=== PATIENT | female | born 1980 | race Caucasian/White ===

== ENCOUNTER 2017-06-20 06:56 | Emergency (ER) | payer OTHER ==
[2017-06-20 07:39] LABS: #Basophils 0.1 thou/uL (0.0-0.2); #Eosinphils 0.2 thou/uL (0.0-0.7); #Lymphocytes 2.1 thou/uL (1.20-3.40); #Monocytes 0.7 thou/uL (0.11-0.59); #Neutrophils 6.3 thou/uL (1.40-6.50); %Basophils 0.6 % (0.0-1.0); %Eosinophils 2.3 % (0.0-10.0); %Lymphocytes 22.4 % (21.0-51.0); %Monocytes 7.1 % (0.0-10.0); %Neutrophils 67.6 % (42.0-75.0); Hemoglobin 12.9 g/dL (12.0-16.0); Mean Corpuscular HGB CONC 34.7 g/dL (32.0-36.0); Mean Corpuscular Hemoglobin 31.2 pg (27.0-31.0); Mean Platelet Volume 7.8 fL (7.4-10.4); Platelet Count 253 thou/uL (130-400); RBC Distribution Width 12.3 % (11.5-14.5); Red Blood Cell (RBC) Count 4.15 mill/uL (4.20-5.40); White Blood Cell (WBC) Count 9.4 thou/uL (4.8-10.8)
--- NOTE | 2017-06-20 08:36 | ULT ---
PELVIC ULTRASOUND: HISTORY: Vaginal bleeding off and on for months. TECHNIQUE: Multiplanar, wright scale, and color Doppler images were obtained in a transvaginal pelvic ultrasound. Spectral analysis throughout the waveforms of ovaries were performed. FINDINGS: There is a hypoechoic region within the uterus which likely represents a gestational sac. A yolk sac is seen within the gestational sac, but no pole is seen at this time. Mean sac diameter is 1. 36 cm which estimates gestational age at 6 weeks 2 days. No free fluid is seen in the pelvis. Both ovaries are normal in size and appearance and demonstrate normal internal flow. IMPRESSION: Likely early intrauterine with estimated age of 6 weeks 2 days. POS: DENISSE
== END 2017-06-20 08:33 | disposition home or self-care (01) ==
LOC: ERS 06:56
DX: O20.0 Threatened abortion (principal); O99.511 Diseases of the respiratory system complicating pregnancy, first trimester; J45.909 Unspecified asthma, uncomplicated; O99.281 Endocrine, nutritional and metabolic diseases complicating pregnancy, first trimester; E03.9 Hypothyroidism, unspecified; O99.351 Diseases of the nervous system complicating pregnancy, first trimester; G43.909 Migraine, unspecified, not intractable, without status migrainosus; O99.341 Other mental disorders complicating pregnancy, first trimester; F32.9 Major depressive disorder, single episode, unspecified; Z3A.01 Less than 8 weeks gestation of pregnancy; Z79.899 Other long term (current) drug therapy
CPT/HCPCS: 36415; 76856; 84702; 85025; 86900; 86901

== ENCOUNTER 2017-06-26 08:11 | Outpatient (CLI) | payer OTHER | END 2017-06-26 08:12 | disposition home or self-care (01) | LOC: BICULT 08:11 | PROVIDERS: ATTEND Internal Medicine | DX: N63.0 Unspecified lump in unspecified breast (principal); N64.89 Other specified disorders of breast ==

== ENCOUNTER 2018-02-11 20:43 | Inpatient (IN) | payer OTHER ==
[~2018-02-11 20:43] MED LIST: Bupivacaine 0.25% HCL 30 ML VIAL ONE; Bupivacaine/Epinephrine 0.25% 30 ML VIAL ONE
[2018-02-11] MEDS ORDERED: Butorphanol Tartrate 1 MG/ML VIAL SLOW IVP PRN (20:55)
[2018-02-11] MEDS ORDERED: Lidocaine 1% (PF) 30 ML VIAL SC PRN (20:55)
[2018-02-11] MEDS ORDERED: NS w/ Oxytocin 10 units 500 ML IV SCH (20:55)
[2018-02-11] MEDS ORDERED: Zolpidem Tartrate 5 MG TAB PO PRN (20:55)
[2018-02-11] MEDS ORDERED: HYDROcodone/Acetaminophen 5/325 mg Tablet PO PRN (20:55)
[2018-02-11] MEDS ORDERED: NS / Oxytocin 40 units/1000ml 1,000 ML IV PRN (20:55)
[2018-02-11] MEDS ORDERED: Diphenoxylate HCl/Atropine Tablet PO PRN (20:55)
[2018-02-11] MEDS ORDERED: Carboprost 250 MCG/ML AMP IM PRN (20:55)
[2018-02-11] MEDS ORDERED: Ondansetron HCl/PF 4 MG/2 ML Vial IVP PRN (20:55)
[2018-02-11] MEDS ORDERED: Methylergonovine 0.2 MG/ML VIAL IM PRN (20:55)
[2018-02-11] MEDS ORDERED: Ibuprofen 800 MG TAB PO PRN (20:55)
[2018-02-11] MEDS ORDERED: Misoprostol 200 MCG TAB PR PRN (20:55)
[2018-02-11] MEDS ORDERED: Promethazine HCl 25 MG/ML VIAL IM PRN (20:55)
[2018-02-11] MEDS ORDERED: Acetaminophen 500 MG TAB PO PRN (20:55)
[2018-02-11 21:03] VITALS: BMI 46.0
[2018-02-11] MEDS: Lactated Ringer's 1,000 ML IV SCH (21:35)
[2018-02-11] MEDS: Misoprostol 100 MCG TAB VAG SCH (22:05)
[2018-02-11 22:22] LABS: Hemoglobin 10.8 g/dL (12.0-16.0); Mean Corpuscular HGB CONC 34.2 g/dL (32.0-36.0); Mean Corpuscular Hemoglobin 30.2 pg (27.0-31.0); Mean Corpuscular Volume 88.1 fL (78.0-98.0); Mean Platelet Volume 8.8 fL (7.4-10.4); Platelet Count 244 thou/uL (130-400); RBC Distribution Width 12.9 % (11.5-14.5); Red Blood Cell (RBC) Count 3.58 mill/uL (4.20-5.40); White Blood Cell (WBC) Count 9.1 thou/uL (4.8-10.8)
[2018-02-11 22:46] LABS: Syphilis Antibody Nonreactive (Nonreactive); Syphilis Antibody Index 0.05 S/CO (<1.00 Non-Reactive)
[2018-02-11 23:28] LABS: HBSAg Index 0.21 S/CO (0-0.99); Hep B Surf Ag Non-Reactive S/CO (NonReactive)
[2018-02-12] MEDS: Misoprostol 100 MCG TAB VAG SCH ×7 (01:51→19:34)
[2018-02-12] MEDS: Lactated Ringer's 1,000 ML IV SCH ×4 (03:36→20:27)
--- NOTE | 2018-02-12 08:04 | PDOC.LDHP ---
Labor and Delivery H&P Chief complaint: scheduled induction HPI: 37yo at 39w4d by LMP for elective IOL. s/p cytotec x 3 over night, ctx pain 4/10 and some back pain. Current gestational age (weeks): 39 Due date: 02/15/18 Dating criteria: last menstrual period Grav: 1 Para: 0 Current complications: none Abnormal US findings: No Past Medical History: hypothyroid, obesity, anxiety Current medications: pre- vitamins, other (zoloft, levothyroxine) Previous surgical history: other (egd for stomach polyps) Allergies/Adverse Reactions: Allergies Allergy/AdvReac Type Severity Reaction Status Date / Time aspirin Allergy Verified 12/30/13 02:03 strawberry [[place]] Allergy Verified 12/30/13 02:03 Social history: none - Physical Exam Vital signs reviewed and normal: yes General: NAD Heart: RRR Lungs: CTAB Abdomen: gravid Extremeties: no edema FHT: category 1 [place] contractions every: 3min - Vaginal Exam cm dilated: 2 Effacement: 50% Station: -2 - OB Labs Blood type: A RH: positive Antibody Screen: negative HIV: negative RPR: negative HEPSAg: negative 1 hour GCT: negative GBS: negative Urine drug screen: negative Rubella: immune - Assessment L&D Assessment: elective induction at term - Plan Plan: admit to L&D, cervical ripening, labor augmentation if indicated, informed consent obtained, anesthesia consult for pain management -: 1 more dose of cytotec then pitocin with arom
[2018-02-12] MEDS ORDERED: NS w/ Oxytocin 10 units 500 ML ONE (13:06)
[2018-02-12] MEDS ORDERED: DISCONTINUE ALL PREVIOUS NARCOTICS FS SCH (13:30)
[2018-02-12] MEDS: Bupivacaine 0.5% 20 ML, fentaNYL Citrate/PF 400 MCG in Sodium Chloride 0.9% 72 ML EPIDURAL SCH ×2 (14:30→20:54)
[2018-02-12] MEDS ORDERED: diphenhydrAMINE 50 MG/ML VIAL IM PRN (14:45)
[2018-02-12] MEDS ORDERED: Bupivacaine 0.25% 10 ML VIAL EPIDURAL PRN (14:45)
[2018-02-12] MEDS ORDERED: fentaNYL Citrate/PF 1,250 MCG, Bupivacaine 25 ML in Sodium Chloride 0.9% 250 ML 200 ML EPIDURAL SCH (14:45)
[2018-02-12] MEDS ORDERED: diphenhydrAMINE 25 MG CAP PO PRN (14:45)
[2018-02-12] MEDS ORDERED: Ondansetron HCl/PF 4 MG/2 ML Vial IVP PRN (14:45)
[2018-02-12] MEDS ORDERED: Eucerin (Mineral Oil/Petrolatum,White) 30 gm Jar TOP PRN (14:45)
[2018-02-12] MEDS ORDERED: Promethazine HCl 25 MG SUPP PR PRN (14:45)
[2018-02-12] MEDS ORDERED: diphenhydrAMINE 50 MG/ML VIAL IVP PRN (14:45)
[2018-02-12] MEDS ORDERED: Communication Order-Pharmacy FS SCH ×2 (14:45)
[2018-02-12] MEDS ORDERED: Promethazine HCl 25 MG/ML VIAL IM PRN (14:45)
[2018-02-12] MEDS ORDERED: Zolpidem Tartrate 5 MG TAB PO PRN (14:45)
[2018-02-12] MEDS ORDERED: Naloxone HCl 0.4 mg/ml Vial IVP PRN ×2 (14:45)
--- NOTE | 2018-02-12 17:09 | PDOC.LDPN ---
Labor & Delivery Progress Note - Subjective Subjective: painful contractions - Objective Vital signs reviewed and normal: yes General: NAD Uterine fundus: non tender Dilation: 3 Effacement: 50% Station: -2 (arom clear) FHT: category 1 [place] contractions every: 3-4min AROM: clear fluid IUPC placed: yes FSE placed: yes Plan: labor augmentation
[2018-02-13] MEDS: Misoprostol 100 MCG TAB VAG SCH ×3 (00:17→09:10)
[2018-02-13] MEDS: Bupivacaine 0.5% 20 ML, fentaNYL Citrate/PF 400 MCG in Sodium Chloride 0.9% 72 ML EPIDURAL SCH (02:24)
[2018-02-13 07:49] LABS: Actual Bicarbonate (HCO3a) 27.6 mEq/L (22-28); Analyzer IN Cardio OR; Base Excess (BEa) -3.7 mEq/L (-2.0 to +3.0)
--- NOTE | 2018-02-13 07:50 | PDOC.OPDEL ---
OB Operative/Delivery Note Delivery Dr/Surgeon: Deangelo Assist: n/a Pre-Delivery Diagnosis: elective induction Procedure/Post Delivery Dx: spontaneous vaginal delivery Weeks gestation: 39 Anesthesia: epidural - Findings A Sex: male - Additional Findings/Plan Placenta delivered: spontaneous Repaired Obstetrical Laceration: episiotomy (midline, 2nd degree due to terminal bradycardia, repaired with 2-0 vicryl in usual fashion, excellent hemostasis) Estimated blood loss: 200 Compilations/Other Findings: baby pale and no effort immediately following , josé antonio called immediately and resuscitation began, cord gas and placenta sent to pathology. Post delivery plan: routine recovery
[2018-02-13 07:54] LABS: Actual Bicarbonate (HCO3v) 22 mEq/L (22-28); Analyzer IN Cardio OR; Base Excess -3.9 mEq/L (-2.0 to +3.0); pH (Cord, venous) 7.34 (7.32-7.43)
[2018-02-13] MEDS ORDERED: Ondansetron HCl/PF 4 MG/2 ML Vial IVP PRN (09:25)
[2018-02-13] MEDS ORDERED: Preparation H Ointment 28 GM TUBE PR PRN (09:25)
[2018-02-13] MEDS ORDERED: Lanolin Ointment 7 GM TUBE TOP PRN (09:25)
[2018-02-13] MEDS ORDERED: Milk Of Magnesia 30 ML UDCUP PO PRN (09:25)
[2018-02-13] MEDS ORDERED: Benzocaine/Menthol 20-0.5% 60 ML CAN TOP PRN (09:25)
[2018-02-13] MEDS ORDERED: Bisacodyl 10 MG SUPP PR PRN (09:25)
[2018-02-13] MEDS ORDERED: Acetaminophen/Codeine 30-300mg Tablet PO PRN ×2 (09:25)
[2018-02-13] MEDS ORDERED: NS / Oxytocin 40 units/1000ml 1,000 ML IV SCH (09:25)
[2018-02-13] MEDS ORDERED: diphenhydrAMINE 25 MG CAP PO PRN (09:25)
[2018-02-13] MEDS ORDERED: Adacel (T-DAP) 0.5 ML VIAL IM ONE (09:25)
[2018-02-13] MEDS ORDERED: Prenatal Vitamin 1 TAB PO SCH (10:00)
[2018-02-13] MEDS ORDERED: Ferrous Sulfate 325 MG TAB PO SCH (10:00)
[2018-02-13] MEDS ORDERED: Docusate Calcium (SURFAK) 240 MG CAP PO SCH (10:00)
[2018-02-13] MEDS: Ferrous Sulfate 325 MG TAB PO SCH (16:50)
[2018-02-13] MEDS: Docusate Calcium (SURFAK) 240 MG CAP PO SCH (23:22)
[2018-02-14] MEDS: Ibuprofen 800 MG TAB PO PRN ×3 (01:19→15:49)
--- NOTE | 2018-02-14 01:29 | PDOC.PP ---
Post Progress Note Post Day #: 1 Subjective: Some discomfort from "stitches" at vaginal area, but otherwise doing well PO intake tolerated: yes Flatus: yes Ambulation: yes Vital Signs (12 hours) Temp Pulse Resp BP BP 02/13/18 21:00 97.8 F 69 20 02/13/18 19:25 97.8 F 69 20 118/56 L 02/13/18 17:52 97.8 F 74 20 104/59 L 02/13/18 16:51 97.8 F 86 16 02/13/18 14:40 97.8 F 86 16 103/51 L Weight Weight 303 lb - Physical Examination General: NAD Cardiovascular: no m/r/g, RRR Respiratory: clear to auscultation bilaterally Abdominal: + bowel sounds, lochia, no distention, appropriately TTP Extremities: negative homans (B) Neurological: no gross focal deficits Psychiatric: A&Ox3, normal affect Result Diagrams: 02/11/18 21:48 Additional Labs: Post Labs Blood Type A POSITIVE 02/11/18 21:48 Hep Bs Antigen Non-Reactive S/CO (NonReactive) 02/11/18 21:48 (1) Vaginal delivery Code(s): O80 - ENCOUNTER FOR FULL-TERM UNCOMPLICATED DELIVERY Status: Acute - Assessment/Plan S/P on 02/13 with baby initially stuned at delivery...gas was normal. Baby in room with mom and doing well. We will obs still today and like;ly send home tomorrow on 02/15
[2018-02-14] MEDS: Ferrous Sulfate 325 MG TAB PO SCH ×2 (07:43→15:38)
[2018-02-14] MEDS: Prenatal Vitamin 1 TAB PO SCH (08:57)
[2018-02-14] MEDS: Docusate Calcium (SURFAK) 240 MG CAP PO SCH ×2 (08:57→21:44)
[2018-02-15] MEDS: Ibuprofen 800 MG TAB PO PRN ×2 (00:07→10:00)
--- NOTE | 2018-02-15 07:29 | PDOC.PP ---
Post Progress Note Post Day #: 2 PO intake tolerated: yes Flatus: yes Ambulation: yes Vital Signs (12 hours) Temp Pulse Resp BP 02/14/18 20:00 97.7 F 86 18 119/55 L Weight Weight 303 lb - Physical Examination General: NAD Cardiovascular: no m/r/g, RRR Respiratory: clear to auscultation bilaterally Abdominal: + bowel sounds, lochia Extremities: negative homans (B) Neurological: no gross focal deficits Psychiatric: A&Ox3, normal affect Result Diagrams: 02/11/18 21:48 Additional Labs: Post Labs Blood Type A POSITIVE 02/11/18 21:48 Hep Bs Antigen Non-Reactive S/CO (NonReactive) 02/11/18 21:48 - Assessment/Plan doing well dc home w baby pending bili and blood cx
[2018-02-15 09:04] VITALS: BP 102/59; TEMP 97.8
[2018-02-15] MEDS: Prenatal Vitamin 1 TAB PO SCH (09:05)
[2018-02-15] MEDS: Ferrous Sulfate 325 MG TAB PO SCH (09:05)
[2018-02-15] MEDS: Docusate Calcium (SURFAK) 240 MG CAP PO SCH (09:05)
== END 2018-02-15 12:35 | disposition home or self-care (01) | DRG 775 ==
LOC: L&D 20:43 → 3SW 02-13 14:32
PROVIDERS: ADMIT Student in an Organized Health Care Education/Training Program; ATTEND Student in an Organized Health Care Education/Training Program
PROC: 10E0XZZ Delivery of Products of Conception, External Approach (ICD-10-PCS; principal; 2018-02-13)
PROC: 0W8NXZZ Division of Female Perineum, External Approach (ICD-10-PCS; 2018-02-13)
PROC: 3E0P7VZ Introduction of Hormone into Female Reproductive, Via Natural or Artificial Opening (ICD-10-PCS; 2018-02-13)
DX: O76 Abnormality in fetal heart rate and rhythm complicating labor and delivery (principal); Z68.42 Body mass index [BMI] 45.0-49.9, adult; Z37.0 Single live birth; O99.284 Endocrine, nutritional and metabolic diseases complicating childbirth; E03.9 Hypothyroidism, unspecified; O99.214 Obesity complicating childbirth; E66.9 Obesity, unspecified; F41.9 Anxiety disorder, unspecified; O99.344 Other mental disorders complicating childbirth; F99 Mental disorder, not otherwise specified; Z3A.39 39 weeks gestation of pregnancy
CPT/HCPCS: 36415; 51702; 82805; 85027; 86780; 86850; 86900; 86901; 87340; 88307; 90471; 90732; G0009; J2405; J3010; J3490; J7050; S0020

== ENCOUNTER 2021-12-03 09:19 | Outpatient (CLI) | payer OTHER | END 2021-12-03 09:20 | disposition home or self-care (01) | LOC: BICMAMMO 09:19 | PROVIDERS: ATTEND Internal Medicine | DX: N64.4 Mastodynia (principal) | CPT/HCPCS: 77066; G0279 ==

== ENCOUNTER 2023-05-28 08:59 | Outpatient (CLI) | payer OTHER | END 2023-05-28 09:00 | disposition home or self-care (01) | LOC: BICMAMMO 08:59 | PROVIDERS: ATTEND Internal Medicine | DX: R92.8 Other abnormal and inconclusive findings on diagnostic imaging of breast (principal) | CPT/HCPCS: 77066; G0279 ==

== ENCOUNTER 2023-12-24 07:57 | Outpatient (CLI) | payer OTHER | END 2023-12-24 07:58 | disposition home or self-care (01) | LOC: BICMAMMO 07:57 | PROVIDERS: ATTEND Internal Medicine | DX: R92.8 Other abnormal and inconclusive findings on diagnostic imaging of breast (principal) | CPT/HCPCS: G0279 ==

== ENCOUNTER 2025-03-02 13:12 | Emergency (ER) | payer SELFPAY ==
[2025-03-02] MEDS ORDERED: Ondansetron PF 4 MG/2 ML Vial ONE (14:03)
[2025-03-02 14:12] LABS: #Basophils 0.04 10x3/uL (0.0-0.2); #Eosinophils 0.35 10x3/uL (0.0-0.7); #Monocytes 0.57 10x3/uL (0.11-0.59); #Neutrophils 4.03 10x3/uL (1.40-6.50); %Basophils 0.6 % (0.0-1.0); %Eosinophils 5.2 % (0.0-10.0); %Lymphocytes 25.1 % (21.0-51.0); %Monocytes 8.5 % (0.0-10.0); %Neutrophils 60.3 % (42.0-75.0); Hematocrit 36.9 % (36.0-47.0); Hemoglobin 11.7 g/dL (12.0-16.0); Mean Corpuscular Hemoglobin 27.1 pg (27.0-31.0); Mean Corpuscular Volume 85.6 fL (78.0-98.0); Platelet Count 275 10x3/uL (130-400); Red Blood Cell (RBC) Count 4.31 mill/uL (4.20-5.40); White Blood Cell (WBC) Count 6.69 10x3/uL (4.8-10.8)
[2025-03-02 14:22] LABS: CAUTI Indications for Culture Pelvic or flank pain; Glucose, Urine (Dipstick) Normal (Negative); Leukocyte Negative Leu/uL (Negative); Protein, Urine (Dipstick) Negative (Neg-Trace); RBC/HPF 0-3 HPF (0-3); Specific Gravity, Urine 1.004 (1.002-1.036); WBC/HPF 0-3 HPF (0-3)
[2025-03-02 14:23] LABS: Bacteria/HPF 1+ HPF (None Seen)
[2025-03-02 14:25] LABS: Urine Culture Reflex No No
[2025-03-02 14:35] LABS: BHCG - Serum Negative (NEGATIVE); Pregs Control Background? CLEAR/WHITE (CLR/WHITE); Pregs Control Bar Appear? YES (CONTROL BAR)
[2025-03-02 15:27] LABS: Chloride 103 mmol/L (98-107); Potassium 3.9 mmol/L (3.5-5.1); Sodium 141 mmol/L (136-145)
[2025-03-02 15:30] LABS: Anion Gap 18 mmol/L (10-20); BUN (Urea Nitrogen) 6 mg/dL (7.0-18.7); Calc. Creatinine Clearance 0 mL/min (70-130); Carbon Dioxide 24 mmol/L (22-29)
[2025-03-02 15:31] LABS: ALT (SGPT) 26 U/L (Less than 34); Albumin 3.4 g/dL (3.1-4.5); Alkaline Phosphatase 44 U/L (40-110); Bilirubin, Total 0.4 mg/dL (0.3-1.2); Calcium 9.4 mg/dL (7.8-10.44); Globulin 4.1 g/dL (2.4-3.5); Glucose 101 mg/dL (70-105); Lipase 15 U/L (8-78)
[2025-03-02 15:34] LABS: AST (SGOT) 21 U/L (11-34)
[2025-03-02] MEDS ORDERED: Iopamidol-370 76% 500 ML MDV (1 ML CHARGE) ONE (15:51)
== END 2025-03-02 16:41 | disposition home or self-care (01) ==
LOC: ERS 13:12
DX: R10.84 Generalized abdominal pain (principal); R19.7 Diarrhea, unspecified
CPT/HCPCS: 36415; 74177; 80053; 81001; 83605; 83690; 84703; 85025; 96374; Q9967